=== PATIENT | male | born 1935 | race American Indian/Alaskan Native ===

== ENCOUNTER 2016-10-13 16:28 | Outpatient (CLI) | payer MEDICARE ==
[2016-10-13 16:48] LABS: INR 0.98 (0.87-1.13)
== END 2016-10-13 16:29 | disposition home or self-care (01) ==
LOC: LAB 16:28
DX: I48.0 Paroxysmal atrial fibrillation (principal); E78.2 Mixed hyperlipidemia; Z79.01 Long term (current) use of anticoagulants; Z79.899 Other long term (current) drug therapy
CPT/HCPCS: 36415; 85610

== ENCOUNTER 2016-11-24 13:35 | Outpatient (CLI) | payer MEDICARE ==
[2016-11-24 14:25] LABS: INR 2.54 (0.87-1.13)
== END 2016-11-24 13:36 | disposition home or self-care (01) ==
LOC: LAB 13:35
DX: Z00.00 Encounter for general adult medical examination without abnormal findings (principal); Z79.01 Long term (current) use of anticoagulants
CPT/HCPCS: 36415; 85610

== ENCOUNTER 2017-07-30 12:34 | Outpatient (CLI) | payer MEDICARE ==
[2017-07-30 13:21] LABS: INR 1.54 (0.87-1.13)
== END 2017-07-30 12:35 | disposition home or self-care (01) ==
LOC: LAB 12:34
DX: I48.0 Paroxysmal atrial fibrillation (principal); Z79.899 Other long term (current) drug therapy
CPT/HCPCS: 36415; 85610